=== PATIENT | female | born 1970 | race Native Hawaiian/Other Pacific Islander ===

== ENCOUNTER 2017-08-28 22:52 | Emergency (ER) | payer OTHER ==
[~2017-08-28] VITALS: Ht 170.2 cm; Wt 63.5 kg
[2017-08-28 22:54] VITALS: BP 105/66; TEMP 97.6
[2017-08-28 23:47] LABS: PLATELET COUNT 274 K/uL (152-353)
[2017-08-28 23:53] LABS: POTASSIUM 4.1 mmol/L (3.6-5.2)
[2017-08-29] MEDS ORDERED: LORA0.5T17 PO (02:25)
[2017-08-29] MEDS ORDERED: ESCI10TA PO (02:28)
[2017-08-29] MEDS ORDERED: DONE5TAB PO (02:33)
[2017-08-29] MEDS ORDERED: DIVA500T2 PO (02:38)
[2017-08-29] MEDS ORDERED: FAMO20TA4 PO (02:44)
== END 2017-08-29 00:27 | disposition other institution (70) ==
LOC: ED 22:52
DX: Z04.6 Encounter for general psychiatric examination, requested by authority (principal); Z87.820 Personal history of traumatic brain injury
CPT/HCPCS: 36415; 80053; 81000; 85027; 93005; 99285

== ENCOUNTER 2018-06-15 16:40 | Emergency (ER) | payer OTHER ==
[~2018-06-15] VITALS: Ht 172.7 cm; Wt 73.0 kg
[~2018-06-15 16:40] MED LIST: ARIPIPRAZOLE5 MG PO; CLON0.5T36 PO; DIVA500T2 PO; DIVALPROEX500 MG PO; DONE5TAB PO; ESCI10TA PO; FAMO20TA4 PO; LORA0.5T17 PO
[2018-06-15 17:12] LABS: PLATELET COUNT 153 K/uL (152-353)
[2018-06-15 17:28] LABS: POTASSIUM 3.8 mmol/L (3.6-5.2)
[2018-06-15 19:55] VITALS: BP 92/58; TEMP 98.2
[2018-06-15] MEDS ORDERED: LIPITOR20 MG PO (20:28)
[2018-06-15] MEDS ORDERED: LEXAPRO10 MG PO (20:29)
[2018-06-15] MEDS ORDERED: FURO20TA67 PO (20:29)
[2018-06-15] MEDS ORDERED: MELATONIN3 M1 PO (20:30)
[2018-06-15] MEDS ORDERED: [UNRECOGNIZED DRUG - OTHER] PO (20:31)
[2018-06-15] MEDS ORDERED: DOXE25CA18 PO (20:32)
[2018-06-15] MEDS ORDERED: DONEPEZIL HYDRO10 MG PO (20:32)
[2018-06-15] MEDS ORDERED: LORA0.5T17 PO (20:34)
[2018-06-15] MEDS ORDERED: TYLENOL325 MG PO (20:35)
[2018-06-15] MEDS ORDERED: PROM25IN5 INJ (20:36)
== END 2018-06-15 19:57 | disposition other institution (70) ==
LOC: ED 16:40
PROVIDERS: Family Medicine
DX: R46.89 Other symptoms and signs involving appearance and behavior (principal); F20.89 Other schizophrenia; Z04.6 Encounter for general psychiatric examination, requested by authority
CPT/HCPCS: 36415; 80053; 85027; 93005; 99285

== ENCOUNTER 2018-12-28 21:50 | Emergency (ER) | payer OTHER ==
[~2018-12-28] VITALS: Ht 172.7 cm; Wt 74.4 kg
[~2018-12-28 21:50] MED LIST changes: +CHOL100034 PO; +DONEPEZIL HYDRO10 MG PO; +DOXE25CA18 PO; +FURO20TA67 PO; +LEXAPRO10 MG PO; +LIPITOR20 MG PO; +MELATONIN3 M1 PO; +PROM25IN5 INJ; +TYLENOL325 MG PO; +[UNRECOGNIZED DRUG - OTHER] PO
[2018-12-28 22:10] LABS: PLATELET COUNT 122 K/uL (152-353)
[2018-12-28 22:16] LABS: POTASSIUM 3.1 mmol/L (3.6-5.2)
[2018-12-28 23:15] VITALS: BP 113/91; TEMP 97
[2018-12-28] MEDS ORDERED: HALO5INJ3 IM (23:57)
[2018-12-28] MEDS ORDERED: SERT50TA PO (23:59)
[2019-01-03] MEDS ORDERED: SERT50TA PO (22:13)
[2019-01-03] MEDS ORDERED: RANI150T78 PO (22:14)
[2019-01-03] MEDS ORDERED: DOXE25CA18 PO (22:15)
[2019-01-03] MEDS ORDERED: MAGN400T4 PO (22:15)
[2019-01-03] MEDS ORDERED: OXCARBAZEPIN300 MG PO (22:15)
[2019-01-03] MEDS ORDERED: DONE5TAB PEG (22:15)
[2019-01-03] MEDS ORDERED: ARIPIPRAZOLE10 MG PO ×2 (22:16)
[2019-01-03] MEDS ORDERED: ATOR20TA2 PO (22:16)
== END 2018-12-28 23:15 | disposition other institution (70) ==
LOC: ED 21:50
PROVIDERS: Emergency Medicine
DX: R45.1 Restlessness and agitation (principal); R46.89 Other symptoms and signs involving appearance and behavior; M25.551 Pain in right hip; Y04.2XXA Assault by strike against or bumped into by another person, initial encounter; Y92.89 Other specified places as the place of occurrence of the external cause; Z04.6 Encounter for general psychiatric examination, requested by authority
CPT/HCPCS: 80053; 84484; 85027; 93005; 99285